=== PATIENT | female | born 1940 | race Caucasian/White ===

== ENCOUNTER 2024-03-19 15:33 | Emergency (ER) | payer MEDICARE, BC, SELFPAY ==
[2024-03-19 15:34] VITALS: BMI 27.3
[2024-03-19 15:50] VITALS: BP 162/96; PULSE 68; RESP 18; TEMP 36.4; O2SAT 96
--- NOTE | 2024-03-19 15:55 | XR_ITS ---
Examination: CT brain head without contrast. 2-D sagittal coronal reconstructions Date and time of exam:March 19, 2024 1614 hrs. Indications: Patient fell today with injury of the head, head pain CTDI: vol (mGy):47.5 DLP: (mGycm):950 Technique: Multiple CT axial sections of the brain have been obtained, 5 mm slice thickness. Contrast has not been administered. 2-D sagittal, coronal reconstructions have been obtained Low dose protocols were performed. One or more of the following dose reduction techniques were used; automated exposure control, adjustment of the mA and/or KV according to patient size, use of iterative reconstruction technique. Findings: No significant ventricular enlargement. Intra-axial or extra-axial hemorrhage density is not seen. No mass effect or midline shift Basal cisterns are not remarkable. Fourth ventricle is midline. Cranial vault intact. Impression: Negative for acute hemorrhage, mass effect or midline shift
--- NOTE | 2024-03-19 15:55 | XR_ITS ---
Examination: Left wrist 2 views Technique: AP lateral left wrist 2 views Exam date and time:: March 19, 2024 1621 hrs. Indications: Patient fell today with intravenous, wrist pain. Findings: Acute impacted intra-articular fracture distal radial metaphysis Fractured distal ulna at the ulnar styloid tip Carpal bones intact Impression: Acute comminuted impacted intra-articular fracture distal radial metaphysis.
--- NOTE | 2024-03-19 15:55 | XR_ITS ---
Examination: CT cervical spine without contrast 2-D sagittal reconstructions 2-D coronal reconstructions 3-D reconstructions. Exam date and time:March 19, 2024 1614 hrs. Indications: Patient fell today with injury to the neck, neck pain CTDI:vol (mGy) 8.14 DLP: (mGycm) 177 Technique: Multiple 2 mm axial sections of the cervical spine have been obtained. The coronal and sagittal reconstructions have been obtained. 3-D reconstructions have been obtained. Low dose protocols were performed. One or more of the following dose reduction techniques were used; automated exposure control, adjustment of the mA and/or KV according to patient size, use of iterative reconstruction technique. Findings: Axial sections demonstrate intact base of the skull. Minimal anterolisthesis C3 on C4, C4 on C5 C1 exhibit satisfactory relationship to the odontoid. No acute cervical vertebral body fracture seen. Alignment posterior spinous processes satisfactory. Impression: No acute cervical fracture.
--- NOTE | 2024-03-19 15:55 | XR_ITS ---
Examination: Right wrist 2 views Technique: AP lateral 2 views Examination time:. March 19, 2024 at 1623 hrs. Indications: Patient fell today with injury to the wrist, wrist pain. Findings: No acute fracture. No dislocation Prominent osteopenia. Impression: No acute fracture.
--- NOTE | 2024-03-19 15:57 | EDNOTE_ITS ---
<Statement entered by Cassandra Sanders MD - 03/20/24 09:15> As co-signing physician, I was present and available for consult prn. I concur with the plan and care as documented by the midlevel provider. ED Fall Injury RME/HPI General Chief Complaint: Fall Stated Complaint: INJURY LEFT WRIST/HIT HEAD S/P TRIP/FALL, NO LOC Time Seen by Provider: 03/19/24 15:49 Arrival date/time: 03/19/24 15:33 RME / HPI RME / HPI Narrative: 83-year-old female patient with significant history of hypertension, came in for evaluation regarding ground-level fall. Patient sustained a trip and fell landing on her bilateral wrist and face sustaining abrasion to the right eyebrow, left wrist deformity, and right wrist pain. Severity of symptoms moderate. Patient denies any LOC. Patient is ambulatory. Patient is not taking any blood thinner. Patient also complained of headache and neck pain. Severity mild. Incident happened about 1 hour prior to ER visit. Related Data Home Medications ?Medication ?Instructions ?Recorded ?Confirmed propranolol 20 mg tablet 160 mg PO DAILY 10/10/17 12/28/19 cetirizine 10 mg tablet (Zyrtec) 10 mg PO QDAY 12/31/17 12/28/19 lisinopril 10 mg tablet 10 mg PO QDAY 12/31/17 12/28/19 venlafaxine 37.5 mg 37.5 mg PO QDAY 12/31/17 12/27/19 tablet,extended release 24 hr acetaminophen 500 mg capsule 500 mg PO Q6H PRN Headache 12/27/19 12/28/19 aspirin 81 mg tablet 81 mg PO QDAY 12/27/19 12/28/19 zolpidem 10 mg tablet (Ambien) 10 mg PO HS 12/27/19 12/28/19 Previous Rx's ?Medication ?Instructions ?Recorded acetaminophen 300 mg-codeine 30 mg 1 tab PO Q8H PRN pain #20 tabs 03/19/24 tablet Allergies Allergy/AdvReac Type Severity Reaction Status Date / Time No Known Allergies Allergy Verified 03/19/24 15:35 Review of Systems Review of Systems Narrative Review of Systems: Review of system reviewed and within normal limits except mentioned in HPI ED Exam Narrative Physical exam: VITAL SIGNS: Reviewed. GENERAL APPEARANCE: Alert and interactive, follows commands, no acute distress, HEAD AND FACE: Abrasion right eyebrow ENT: PERRL, pink conjunctivitis, eyelid no trauma, Mucous membrane moist. NECK: Supple, nontender, no nuchal rigidity. CHEST: No tenderness, no crepitus, no paradoxical movement, no retractions. LUNGS: Clear, well ventilated, symmetric, no rales, no wheezing, no ronchi, no stridor, good breath sounds bilaterally. HEART: Regular rate, regular rhythm, no murmur, no gallops. ABDOMEN: Soft, positive bowel sounds, nondistended, no guarding, nontender, no rebound, no masses, RECTAL: Deferred. GENITAL: Deferred. NEUROLOGICAL: Gross motor function intact sensory function intact, Appropriate for age. MUSCULOSKELETAL: low back nontender, full range of motion. EXTREMITIES: Swelling deformity left wrist, tenderness to the right wrist, no swelling or deformity full range of motion. SKIN: Color pink, dry, no rash, no lacerations, no abrasions, no contusions. LYMPHATICS: Deferred. Course Quality Measures none Orders Category Date Time Status Splint / Immobilizer STAT Care 03/19/24 16:[address] cervical spine wo con Stat Exams 03/19/24 15:[address] head/brain wo con Stat Exams 03/19/24 15:55 Completed XR wrist LT 2V Stat Exams 03/19/24 15:55 Completed XR wrist RT 2V Stat Exams 03/19/24 15:55 Completed ACETAMINOPHEN w/COD 300-30 [Tylenol w/Cod #3] Med 03/19/24 15:55 Discontinued 1 tab PO X1 ONE Tet,Diphth,Pertuss(Acell)-Tdap [Boostrix Vacc] Med 03/19/24 15:55 Discontinued 0.5 ml IMI .ONCE ONE Vital Signs Vital signs: Vital Signs Temperature 97.6 F 03/19/24 15:50 Pulse Rate 68 03/19/24 15:50 Respiratory Rate 18 03/19/24 15:50 Blood Pressure 162/96 H 03/19/24 15:50 Pulse Oximetry (%) 96 03/19/24 15:50 Oxygen Delivery Method Room Air 03/19/24 15:50 Fall MDM Narrative MDM Narrative:: 83-year-old female patient with significant history of hypertension, came in for evaluation regarding ground-level fall. Patient sustained a trip and fell landing on her bilateral wrist and face sustaining abrasion to the right eyebrow, left wrist deformity, and right wrist pain. Severity of symptoms moderate. Patient denies any LOC. Patient is ambulatory. Patient is not taking any blood thinner. Patient also complained of headache and neck pain. Severity mild. Incident happened about 1 hour prior to ER visit. X-ray of the left wrist showed intra-articular distal radius fracture, x-ray of the right wrist negative for any fracture or dislocation CT scan of the head came back unremarkable CT scan of the neck came back unremarkable. I contacted Dr. Gonzalez who is kind enough to see this patient this coming Friday at 3 PM for possible surgery. Thank you DrHernan Left wrist was placed on the splint distal neurovascular status intact post splinting. Patient will be sent home on Tylenol with codeine Patient data External records reviewed:: None Clinical information provided by:: patient and family Social determinants that could affect healthcare access:: none Patient has the following chronic illnesses:: Hypertension How is presenting disease/condition affected by chronic disease/condition?: uneffected by Evaluation data The following diagnostics were reviewed and interpreted by me:: radiology exam(s) Lab and/or radiology exams considered but not ordered:: None Interpretation Summary: CT scan of the head came back unremarkable CT scan of the neck came back unremarkable x-ray of the left wrist showed intra-articular fracture of the distal radius X-ray of the right wrist is negative for any acute pathology. Medications / Prescriptions Medications or Prescriptions considered but not ordered:: None Tylenol and Medication administrations:: Medication Administration History Discontinued Medications Acetaminophen/Codeine Phosphate (Acetaminophen W/Cod 300-30 Tablet) 1 tab PO X1 ONE Stop: 03/19/24 15:56 Last Admin: 03/19/24 16:06 Dose: 1 tab Documented By: MICHAEL Diphtheria/Tetanus/Acell Pertussis (Diphth,Pertuss(Acell),Tet Vac 0.5 Ml Vial) 0.5 ml IMi .ONCE ONE Stop: 03/19/24 15:56 Last Admin: 03/19/24 16:07 Dose: 0.5 ml Documented By: MICHAEL Tylenol codeine and Boostrix Consultations Consultation(s) initiated? (list below): Yes Consultation #1 (Physician, Specialty, Details): Consulted Dr. Gonzalez orthopedic surgeon, thank you Diagnosis Fall Differential Diagnosis: syncope and fracture of wrist Most likely diagnosis given after review of the tests above:: Intra articular fracture of the left wrist, status post fall Admission Indicated Admission indicated?: not indicated Explain why admission is indicated or not indicated:: Stable for discharge Admission Request Was there a request for admission?: No Disposition Plan Disposition Plan: Discharge Discharge Attestation Discharge Attestation: The patient and all family members were given an opportunity to ask questions and understood the discharge instructions. Discharge instructions specifically effects, indications for sooner follow up or return to the emergency department, and the expected course of current diagnosis. Patient condition: Stable Discharge Plan Plan Patient Disposition: HOME (Self Care) Disposition Comment: stable Prescriptions/Referrals Prescriptions/Med Rec: New acetaminophen-codeine 300-30 mg tablet 1 tab PO Q8H PRN (Reason: pain) Qty: 20 0RF No Action propranolol 20 mg Tablet 160 mg PO DAILY lisinopril 10 mg Tablet 10 mg PO QDAY cetirizine [Zyrtec] 10 mg Tablet 10 mg PO QDAY venlafaxine 37.5 mg Tablet Extended Release 24 Hr 37.5 mg PO QDAY aspirin 81 mg Tablet 81 mg PO QDAY zolpidem [Ambien] 10 mg Tablet 10 mg PO HS acetaminophen 500 mg Capsule 500 mg PO Q6H PRN (Reason: Headache) Referrals: Justa Guerrero MD [Primary Care Provider] - In 1 week Art Gonzalez MD [Physician] - 03/22/24 (Please follow-up with Dr. Gonzalez orthopedic surgeon this coming Friday at 3 PM you can walk into the clinic) Problem List Clinical Impression: Fracture of wrist, Fall Patient/Caregiver Discharge Instructions Discharge Activity: activity as tolerated Education Materials: How [employer] [facility] Additional Instructions: Thank you for the opportunity for serving you today. You are stable for discharged . You are advised to: Follow-up with Dr Gonzalez orthopedic surgeon, this coming Friday at 3 PM Return to ED for worsening of symptoms Increase oral fluids Take medication as prescribed Elevate arm as needed Do not take aspirin Do not remove the splint until seen by orthopedic surgeon Print Language: Syriac Stand Alone Forms: [employer] Award Info., Patient Portal Info Letter DAMIEN/ZAK Supervising Physician DAMIEN/ZAK Supervising Physician: MD Marilyn
[2024-03-19] MEDS: ACETAMINOPHEN w/COD 300-30 TABLET 1 TAB PO (16:06)
[2024-03-19] MEDS: DIPHTH,PERTUSS(ACELL),TET VAC 0.5 ML VIAL IMi (16:07)
== END 2024-03-19 17:36 | disposition home or self-care (01) ==
PROVIDERS: Emergency Provider Emergency Medicine; PCP Family Medicine
DX: S52.572A Other intraarticular fracture of lower end of left radius, initial encounter for closed fracture (principal); S00.81XA Abrasion of other part of head, initial encounter; M25.531 Pain in right wrist; I10 Essential (primary) hypertension; M54.2 Cervicalgia; W01.0XXA Fall on same level from slipping, tripping and stumbling without subsequent striking against object, initial encounter; Z23 Encounter for immunization
CPT/HCPCS: 29126; 70450; 72125; 73100; 90471; 90715; 99284; A9270

== ENCOUNTER → 2024-04-05 | Outpatient (CLI) | payer MEDICARE, BC, SELFPAY ==
--- NOTE | 2024-04-05 16:05 | XR_ITS ---
Examination: Wrist, left 3 views Technique: Wrist AP, oblique, lateral 3 views Date and time of exam: April 05, 2023 1618 hours INDICATIONS: Acute impacted fracture distal radial metaphysis March 19, 2024 FINDINGS: Partial healing impacted comminuted fracture distal radial metaphysis with stable alignment IMPRESSION: Partial healing impacted intra-articular comminuted fracture distal radial metaphysis with stable alignment
== END | disposition home or self-care (01) ==
LOC: SDIM 15:57
PROVIDERS: PCP Nurse Practitioner Family; Referring Provider Orthopaedic Surgery; Visit Provider Orthopaedic Surgery
DX: S52.532A Colles' fracture of left radius, initial encounter for closed fracture (principal); X58.XXXA Exposure to other specified factors, initial encounter
CPT/HCPCS: 73110

== ENCOUNTER → 2024-05-07 | Outpatient (CLI) | payer MEDICARE, BC, SELFPAY ==
--- NOTE | 2024-05-07 10:42 | XR_ITS ---
Examination: Wrist, left 3 views Technique: Wrist AP, oblique, lateral 3 views Date and time of exam: May 07, 2024 1047 hours Comparison April 05, 2024 INDICATIONS: History acute wrist fracture March 19, 2024 FINDINGS: Significant healing fracture distal radial metaphysis with with stable alignment IMPRESSION: Significant healing fracture distal radial metaphysis with stable alignment
== END | disposition home or self-care (01) ==
LOC: SDIM 10:35
PROVIDERS: PCP Family Medicine; Referring Provider Orthopaedic Surgery; Visit Provider Orthopaedic Surgery
DX: S52.92XA Unspecified fracture of left forearm, initial encounter for closed fracture (principal); X58.XXXA Exposure to other specified factors, initial encounter
CPT/HCPCS: 73110

== ENCOUNTER → 2024-12-28 | Outpatient (CLI) | payer MEDICARE, BC, SELFPAY ==
[2024-12-28 12:29] LABS: Basophils # (Auto) 0.0 Thou/mm3 (0.0-0.2); Basophils % (Auto) 1 % (0-2.5); Eosinophils # (Auto) 0.4 Thou/mm3 (0.0-0.5); Eosinophils % (Auto) 5 % (0-10); Hematocrit 35.6 % (36.0-46.0); Hemoglobin 11.0 g/dL (12.0-16.0); Immature Granulocytes Auto 0.03 Thou/mm3 (0.00-0.00); Lymphocytes # (Auto) 1.8 Thou/mm3 (1.0-4.8); Lymphocytes % (Auto) 23 % (10-50); Mean Corpuscular HGB Conc 30.9 g/dl (31.0-37.0); Mean Corpuscular Hemoglobin 24.7 pg (25.0-35.0); Mean Corpuscular Volume 80 fL (80-100); Monocytes # (Auto) 0.5 Thou/mm3 (0.0-0.8); Monocytes % (Auto) 7 % (0-12); Neutrophils # (Auto) 5.0 Thou/mm3 (1.8-7.7); Neutrophils % (Auto) 65 % (37-80); Nucleated Red Blood Cell # 0.00 Thou/mm3 (0.00-0.00); Nucleated Red Blood Cell % 0 /100 WBC (0); Platelet Count 180 Thou/mm3 (140-440); RDW Standard Deviation 53.1 fL (36.4-46.3); Red Blood Count 4.45 Miln/mm3 (4.00-5.20); White Blood Count 7.7 Thou/mm3 (3.6-11.0)
[2024-12-28 12:42] LABS: Glucose Estimated Average 137 mg/dL (80-131); Hemoglobin A1C 6.4 % Hgb (4.8-6.0)
[2024-12-28 12:51] LABS: Alanine Aminotransferase 12 U/L (10-49); Albumin, Serum 4.5 gm/dL (3.4-4.8); Albumin/Globulin Ratio 2.8 (1.2-2.2); Alkaline Phosphatase 111 U/L (46-116); Anion Gap 10 (7-16); Aspartate Amino Transferase 17 U/L (0-34); BUN/Creatinine Ratio 13 Ratio (12-20); Bilirubin,Total 0.4 mg/dL (0.3-1.2); Blood Urea Nitrogen 15 mg/dL (9-23); Calcium 8.7 mg/dL (8.3-10.6); Calcium (Corrected) 8.7 mg/dL (8.5-10.1); Carbon Dioxide 26.4 mMol/L (20.0-31.0); Cardiac Risk Estimate 2.5 RATIO (3.7-5.6); Chloride 110 mMol/L (98-107); Cholesterol 103 mg/dL (132-200); Creatinine (Component) 1.2 mg/dL (0.6-1.3); Globulin 1.6 gm/dL (2.3-3.5); Glucose 118 mg/dL (74-106); HDL Cholesterol 42 mg/dL (40-60); LDL Cholesterol,Calculated 47 mg/dL (0-130); Osmolality,Calculated 292 (275-295); Potassium 4.4 mMol/L (3.4-5.1); Sodium 146 mMol/L (136-145); Thyroid Stimulating Hormone 2.10 uIU/mL (0.55-4.78); Total Protein 6.1 gm/dL (5.7-8.2); Triglycerides 72 mg/dL (30-150); eGFR 44 See Note
== END | disposition home or self-care (01) ==
LOC: COPL 11:11
PROVIDERS: PCP Nurse Practitioner Family; Referring Provider Nurse Practitioner Family; Visit Provider Nurse Practitioner Family
DX: I10 Essential (primary) hypertension (principal); E78.2 Mixed hyperlipidemia; R73.03 Prediabetes
CPT/HCPCS: 36415; 80053; 80061; 83036; 84443; 85025

== ENCOUNTER → 2025-02-21 | Outpatient (CLI) | payer MEDICARE, BC, SELFPAY ==
[2025-02-21 11:37] LABS: Vitamin B12 445 pg/mL (211-911)
[2025-02-21 13:22] LABS: Iron 54 mcg/dL (50-170)
== END | disposition home or self-care (01) ==
LOC: COPL 09:16
PROVIDERS: PCP Nurse Practitioner Family; Referring Provider Nurse Practitioner Family; Visit Provider Nurse Practitioner Family
DX: D64.9 Anemia, unspecified (principal)
CPT/HCPCS: 36415; 82607; 83540